=== PATIENT | male | born 1985 | race Caucasian/White ===

== ENCOUNTER 2024-02-17 19:54 | Emergency (ER) | payer OTHER ==
[2024-02-17 20:01] VITALS: RESP 18
--- NOTE | 2024-02-17 20:22 | ED ---
General Adult HPI - General Chief complaint: Extremity Injury, Lower Stated complaint: left ankle pain Time Seen by Provider: 02/17/24 19:56 Source: patient, EMS, RN notes reviewed Mode of arrival: EMS - History of Present Illness Initial comments: 39-year-old male presented to the ED with a chief complaint of left ankle injury. Patient was playing volleyball when he went for his bike and states when he landed he landed primarily on his left foot. States that he landed on uneven ground which caused him to invert his left ankle. Now notes pain of the left ankle. Denies any other injury. No other complaints at this time. Of note, patient is at [facility] for alcohol and heroin abuse. He is currently on Suboxone. - Related Data Allergies Allergy/AdvReac Type Severity Reaction Status Date / Time bee venom protein (honey bee) Allergy Swelling Verified 02/17/24 20:02 Penicillins Allergy Rash/Hives Verified 02/17/24 20:01 Review of Systems ROS Statement: Those systems with pertinent positive or pertinent negative responses have been documented in the HPI. ROS Other: All systems not noted in ROS Statement are negative. Past Medical History Past Medical History: No Reported History Additional Past Surgical History / Comment(s): pyloric stenosis Smoking Status: Current every day smoker Past Alcohol Use History: None Reported Past Drug Use History: Opiates General Exam General appearance: alert, in no apparent distress Head exam: Present: atraumatic, normocephalic, other (No cook signs or raccoon's eyes.) Eye exam: Present: normal appearance Neck exam: Present: normal inspection Respiratory exam: Present: normal lung sounds bilaterally Cardiovascular Exam: Present: regular rate GI/Abdominal exam: Present: soft, normal bowel sounds. Absent: distended, tenderness, guarding, rebound, rigid Extremities exam: Present: tenderness (to navicular and left lateral ankle), other (Strength and sensationBilateral upper extremities equal and intact. Full active range of motion. Radial pulses intact. strength and Sensation of right lower extremity intact. Left ankle in splint. ) Neurological exam: Present: alert, oriented X3 Skin exam: Present: warm, dry Course Vital Signs 02/17/24 19:57 Temperature 98.5 F Pulse Rate 85 Respiratory 18 Rate Blood Pressure 110/71 O2 Sat by Pulse 96 Oximetry Procedures - Orthopedic Splinting/Casting Injury #1 Side: left Lower Extremity Immobilizer: posterior splint, stirrup splint Additional Comments: Neurovascularly intact after splint placement. Medical Decision Making - Medical Decision Making Was pt. sent in by a medical professional or institution ([facility], [facility], urgent care, hospital, or fci...) When possible be specific @ -No Did you speak to anyone other than the patient for history (EMS, parent, family, police, friend...)? What history was obtained from this source @ -No Did you review nursing and triage notes (agree or disagree)? Why? @ -I reviewed and agree with nursing and triage notes Were old charts reviewed (outside hosp., previous admission, EMS record, old EKG, old radiological studies, urgent care reports/EKG's, fci records)? Report findings @ -No old charts were reviewed Differential Diagnosis (chest pain, altered mental status, abdominal pain women, abdominal pain men, vaginal bleeding, weakness, fever, dyspnea, syncope, headache, dizziness, GI bleed, back pain, seizure, CVA, palpatations, mental health, musculoskeletal)? @ -Differential Musculoskeletal Muscular strain, contusion, ligament sprain, fracture, arthritis, septic arthritis, bursitis, cellulitis, muscle spasm, nerve compression, DVT, arterial occlusion, herpes zoster, electrolyte abnormality, tumor.... This is not meant to be in all inclusive list EKG interpreted by me (3pts min.). @ -None X-rays interpreted by me (1pt min.). @ -X-ray of the ankle interpreted me showing age-indeterminate irregularity along the dorsal aspect of the navicular bone suggestive of subtle capsular avulsion fracture. Otherwise lateral soft tissue swelling of the ankle no other acute bony findings seen. CT interpreted by me (1pt min.). @ -None done U/S interpreted by me (1pt. min.). @ -None done What testing was considered but not performed or refused? (CT, X-rays, U/S, labs)? Why? @ -None What meds were considered but not given or refused? Why? @ -None Did you discuss the management of the patient with other professionals (professionals i.e. [facility], [facility], lab, RT, psych nurse, social work instructor, nurse supervisor, teacher, intelligence officer basic, manager of case)? Give summary @ -No Was smoking cessation discussed for >3mins.? @ -No Was critical care preformed (if so, how long)? @ -No Were there social determinants of health that impacted care today? How? (Homelessness, low income, unemployed, alcoholism, drug addiction, transportation, low edu. Level, literacy, decrease access to med. care, [facility], rehab)? @ -No Was there de-escalation of care discussed even if they declined (Discuss DNR or withdrawal of care, Hospice)? DNR status @ -No What co-morbidities impacted this encounter? (DM, HTN, Smoking, COPD, CAD, Cancer, CVA, ARF, Chemo, Hep., AIDS, mental health diagnosis, sleep apnea, morbid obesity)? @ -None Was patient admitted / discharged? Hospital course, mention meds given and route, prescriptions, significant lab abnormalities, going to OR and other pertinent info. @ -Discharge 39-year-old male presenting to the ED with a chief complaint of left ankle injury. Went down and inverted his left ankle while playing volleyball. No other injuries at this time. X-ray did show possible age indeterminant irregularity of the dorsal aspect of the navicular bone. Did have some point tenderness to palpation however worse on the left lateral ankle. Patient placed in a splint provide crutches and discharged home in stable condition with referral to see orthopedics. Discussed return precautions with patient who verbalized agreement. Undiagnosed new problem with uncertain prognosis? @ -No Drug Therapy requiring intensive monitoring for toxicity (Heparin, Nitro, Insulin, Cardizem)? @ -No Were any procedures done? @ -Yes, splinting Diagnosis/symptom? @ -Left ankle injury Acute, or Chronic, or Acute on Chronic? @ -Acute Uncomplicated (without systemic symptoms) or Complicated (systemic symptoms)? @ -Uncomplicated Side effects of treatment? @ -No Exacerbation, Progression, or Severe Exacerbation? @ -No Poses a threat to life or bodily function? How? (Chest pain, [place], [place], pneumonia, PE, COPD, DKA, ARF, appy, cholecystitis, CVA, Diverticulitis, Homicidal, Suicidal, threat to staff... and all critical care pts) @ -No Disposition Clinical Impression: Left ankle injury Disposition: HOME SELF-CARE Condition: Good Instructions (If sedation given, give patient instructions): Ankle Sprain (ED) Additional Instructions: Please return to the Emergency Department if symptoms worsen or any other concerns. Please follow-up with orthopedics regarding possible fracture of the foot. Take [id number] medications as needed for pain. Is patient prescribed a controlled substance at d/c from ED?: No Referrals: None,Stated [Primary Care Provider] - 1-2 days James Duffy MD [Medical Doctor] - 1-2 days Time of Disposition: 22:16
--- NOTE | 2024-02-17 21:36 | XR ---
EXAMINATION TYPE: XR ankle complete 3 views LT DATE OF EXAM: 02/17/2024 Comparison: None Clinical History: 39-year-old male with pain after injury, r/o fx other acute finding Findings: Anterior and lateral soft tissue swelling is noted. Ankle mortise is congruent with preservation of t he distal tibiofibular overlap. Talar dome is intact. There is bony irregularity along the dorsal asp ect of the navicular bone which is age indeterminate. Mild degenerative spurring along the anterior a spect of the tibiotalar joint. Otherwise, no acute fracture, subluxation or dislocation is seen. Impression: 1. Age indeterminate irregularity along the dorsal aspect of the navicular bone on the lateral view. Correlate for any point tenderness to exclude a subtle capsular avulsion fracture here. 2. Lateral soft tissue swelling at the ankle. No other acute osseous body seen.
[2024-02-17 22:39] VITALS: BP 111/73; PULSE 81; TEMP 98.3
== END 2024-02-17 23:36 | disposition home or self-care (01) ==
LOC: EC 19:54
DX: S99.912A Unspecified injury of left ankle, initial encounter (principal); F17.200 Nicotine dependence, unspecified, uncomplicated; F11.90 Opioid use, unspecified, uncomplicated; Z88.0 Allergy status to penicillin; Z91.030 Bee allergy status; X50.0XXA Overexertion from strenuous movement or load, initial encounter; Y93.68 Activity, volleyball (beach) (court)
CPT/HCPCS: 29125; 99283